=== PATIENT | male | born 1985 ===

== ENCOUNTER → 2018-09-07 | Outpatient (CLI) | payer MEDICAID ==
[~2018-09-07] MED LIST: ASPI-757 PO; CINN500C12 PO; FLAX1CAP6; GEMF600T96 PO; NIAC-1 PO; OMEG-23 PO
[2018-09-07 14:08] LABS: PLATELET COUNT, AUTOMATED 139 K/uL (150-450)
[2018-09-07 14:17] LABS: LDL CHOLESTEROL 68 mg/dl
== END ==
LOC: LAB 13:39
PROVIDERS: ATTEND Internal Medicine
DX: E78.5 Hyperlipidemia, unspecified (principal); G80.9 Cerebral palsy, unspecified
CPT/HCPCS: 36415; 82040; 82247; 82310; 82374; 82435; 82465; 82565; 82947; 83718; 84075; 84132; 84155; 84295; 84443; 84450; 84460; 84478; 84520; 85025

== ENCOUNTER → 2018-09-15 | Outpatient (CLI) | payer MEDICAID | LOC: LAB 09:55 | PROVIDERS: ATTEND Internal Medicine | DX: G80.9 Cerebral palsy, unspecified (principal); E78.5 Hyperlipidemia, unspecified | CPT/HCPCS: 81001 ==

== ENCOUNTER 2018-11-14 09:35 | Outpatient (RCR) | payer MEDICAID ==
[~2018-11-14 09:35] MED LIST changes: +MULT1TAB64 PO
--- NOTE | 2018-11-14 16:35 | PT INITIAL EVALUATION ---
MEDICAL DIAGNOSIS: G80.9 CP, R29.6 frequent falls TREATMENT DIAGNOSIS: Same, spastic quadriparesis CP DATE OF ONSET: [birth year] SUBJECTIVE: Federico Scruggs presents to PT for increased frequency of falls when picking up lumbar on a scrap pile for firewood, trying to walk backwards, and sometimes for no reason. He lives in a single level apartment, 1 step into the bathroom. His care team assistant, Sanjana, relates she's concerned because he falls forwards or backwards and over estimates his abilities. REHAB PROBLEM LIST: Impaired Cognition, Decreased ROM, Strength, Impaired Transfers, Balance, Mobility, Altered Gait PREVIOUS MEDICAL HISTORY: CP, hyperlipidemia. OCCUPATION: Disabled, community ambulator, would like to reduce the number of falls per month. OBJECTIVE: Posture: Knees, hips flexed ~35 deg., heels 8" apart, flexed trunk, midline trunk and head. ROM: LE PROM knees 25 deg., ankles R -15, L -10 degrees (soleus), hips at 90 deg. flexion IR R 20 deg., L 25 deg., Er R 35 deg., L 40 degrees. Strength: R LE 4/5, L 4+/5 except calves 3/5. Special Tests: Negative clonus B ankles and wrists. Mobility: Independent sit/stand. Federico was able to jump on/off a 6" box with mild balance disturbance on landing. Federico had forward LOB with step onto uneven surfaces, bending over. Gait: Independent mild crouched gait, midfoot to heel off B, feet almost pass each other, L clears the floor. Federico sometimes has L scissoring gait, catching L heel creating lateral and anterior balance loss. Balance: Mild push to chest repeatedly with cause severe B flexor synergy causing retro fall. Strong startle reflex causes the same thing. Static posture, eyes closed on firm WNL, on foam with increased A/P sway. 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 ASSESSMENT: Federico Scruggs presents with atypical quadriplegia CP with high level gait but severe flexor reactions with flexor touch or startle. He would do well with extensor facilitation neuro re-education, extensor strengthening, relaxation techniques, balance and gait training. He's started on a static balance and LE extensor strengthening HEP that both Federico and Sanjana learned today. As Federico comes to [place] approximately 2x/month, we'll focus on HEP. Short Term Goals/Patient's Goals 1 month: Federico demonstrates 1-2 steps backward with balance control. 2 months: Federico walks over lumbar with stepping balance reactions. 3 months: Federico denies falls while picking up lumbar for 20 minutes. 4 months: Federico reports falls are 1x/month. PLAN: Patient to be seen for Manual Therapy, Strengthening/condition, Ice/Heat, Range of Motion, Spinal Stabilization, Stretching, Neuromuscular Re-ed, Electrical Stim, Gait Trg/Balance Trg, Home Exercise Program for 1x/2 weeks for 4 Months Thank you for this referral. If you have any questions, comments, or concerns about this report or plan, please contact me at . RENUKAD
--- NOTE | 2018-12-19 09:42 | PT PLAN OF CARE ---
Physician: Dr. Jak Godinez Patient is being seen: once Therapist: Stacey Gonzalez, PT Medical Diagnosis: G80.9 CP, R29.6 frequent falls Treatment Diagnosis: Same, spastic quadriparesis CP Date of Onset: 87 Date of Initial Evaluation: 11/14/18 Date patient was last seen: 11/14/18 Number of treatments: 1 Number of cancellations/No shows: 2 INTERVENTIONS: Neuro Re-education, Home Exercise Program GOALS/PATIENT'S GOAL: all not met 1 month: Federico demonstrates 1-2 steps backward with balance control. 2 months: Federico walks over lumbar with stepping balance reactions. 3 months: Federico denies falls while picking up lumbar for 20 minutes. 4 months: Federico reports falls are 1x/month. Patient Compliance: Poor Prognosis: Good Reasons for discontinuing therapy: Federico cancelled, no showed his last 3 visits. I'll DC PT due to non-attendance. Thank you. EMMANUEL
== END 2018-11-14 18:00 | disposition home or self-care (01) ==
LOC: PT 09:35
PROVIDERS: ATTEND Internal Medicine
DX: G80.9 Cerebral palsy, unspecified (principal); R29.6 Repeated falls
CPT/HCPCS: 97162